=== PATIENT | female | born 1995 | race Caucasian/White ===

== ENCOUNTER 2018-01-29 12:58 | Emergency (ER) | payer OTHER ==
[2018-01-29] MEDS ORDERED: predniSONE 50 MG TAB PO STA (13:15)
--- NOTE | 2018-01-29 13:17 | ED ---
General Adult HPI - General Chief complaint: Allergic Reaction Stated complaint: Allergic Reaction Time Seen by Provider: 01/29/18 13:12 Source: EMS, RN notes reviewed Mode of arrival: EMS Limitations: no limitations - History of Present Illness Initial comments: Patient is a pleasant 42-year-old female presenting to the emergency department with concern for ALLERGIC reaction. Patient does have a known ALLERGY to tree nuts. Patient did drink some coffee attempt for this with Lazara not and it. Patient felt some mild difficulty in breathing and swelling of her throat. Patient did take some Benadryl and believes her symptoms are essentially resolved at this point. Patient states there was a little bit of a rash on her hands and upper arms however that has essentially resolved as well. - Related Data Home Medications Medication Instructions Recorded Confirmed ALPRAZolam [Xanax] 0.125 mg PO DAILY PRN 01/29/18 01/29/18 Acetaminophen [Tylenol] 500 mg PO Q4-6H PRN 01/29/18 01/29/18 Albuterol Inhaler [Ventolin Hfa 1 - 2 puff INHALATION RT-Q6H PRN 01/29/18 Inhaler] Albuterol Nebulized [Ventolin 2.5 mg INHALATION RT-Q6H PRN 01/29/18 01/29/18 Nebulized] Budesonide/Formoterol Fumarate 2 puff INHALATION RT-BID 01/29/18 01/29/18 [Symbicort 160-4.5 Mcg Inhaler] EPINEPHrine (Auto Inject) [Epipen] 0.3 mg IM ONCE PRN 01/29/18 01/29/18 Famotidine [Pepcid] 40 mg PO BID 01/29/18 01/29/18 Fexofenadine HCl [Dariela Allergy] 60 mg PO BID 01/29/18 01/29/18 Levothyroxine Sodium [Synthroid] 75 mcg PO DAILY 01/29/18 01/29/18 Liraglutide [Victoza 2-Amol] 1.6 mg SQ TU 01/29/18 01/29/18 Montelukast Sodium [Singulair] 10 mg PO HS 01/29/18 01/29/18 amLODIPine BESYLATE/BENAZEPRIL 1 cap PO DAILY 01/29/18 01/29/18 [Lotrel 5-40 mg Capsule] Previous Rx's Medication Instructions Recorded predniSONE 20 mg PO DAILY #5 tab 01/29/18 Allergies Allergy/AdvReac Type Severity Reaction Status Date / Time corn Allergy Unknown Verified 01/29/18 13:27 house dust mite Allergy Unknown Verified 01/29/18 13:27 mold Allergy Unknown Verified 01/29/18 13:27 peanut Allergy Unknown Verified 01/29/18 13:27 peas Allergy Unknown Verified 01/29/18 13:27 Penicillins Allergy Unknown Verified 01/29/18 13:15 shellfish derived [Shellfish] Allergy Unknown Verified 01/29/18 13:27 soy Allergy Unknown Verified 01/29/18 13:27 tree nut Allergy Unknown Verified 01/29/18 13:27 watermelon Allergy Unknown Verified 01/29/18 13:27 Sulfa (Sulfonamide AdvReac Unknown Verified 01/29/18 13:15 Antibiotics) [place] Allergy Unknown Uncoded 01/29/18 13:27 Review of Systems ROS Statement: Those systems with pertinent positive or pertinent negative responses have been documented in the HPI. ROS Other: All systems not noted in ROS Statement are negative. Constitutional: Denies: fever Eyes: Denies: eye pain ENT: Denies: ear pain Respiratory: Reports: dyspnea (Resolved). Denies: cough Cardiovascular: Denies: chest pain Endocrine: Reports: fatigue Gastrointestinal: Denies: abdominal pain Genitourinary: Denies: dysuria Musculoskeletal: Denies: back pain Skin: Reports: as per HPI Neurological: Denies: weakness Past Medical History Past Medical History: Asthma History of Any Multi-Drug Resistant Organisms: None Reported Past Surgical History: Orthopedic Surgery Past Psychological History: No Psychological Hx Reported Smoking Status: Never smoker Past Alcohol Use History: None Reported Past Drug Use History: Marijuana General Exam Limitations: no limitations General appearance: alert, in no apparent distress Head exam: Present: atraumatic Eye exam: Present: normal appearance, PERRL ENT exam: Present: normal oropharynx Neck exam: Present: normal inspection Respiratory exam: Present: normal lung sounds bilaterally. Absent: respiratory distress, wheezes Cardiovascular Exam: Present: regular rate, normal rhythm GI/Abdominal exam: Present: soft. Absent: tenderness Extremities exam: Present: normal inspection Neurological exam: Present: alert Psychiatric exam: Present: normal affect, normal mood Skin exam: Present: normal color Course Vital Signs 01/29/18 01/29/18 13:06 13:22 Temperature 97.3 F L Pulse Rate 94 Respiratory 18 18 Rate Blood Pressure 166/72 O2 Sat by Pulse 97 Oximetry Medical Decision Making - Medical Decision Making Patient reevaluated and symptom-free. Disposition Clinical Impression: Allergic reaction Disposition: HOME SELF-CARE Condition: Stable Instructions: Allergies (ED) Additional Instructions: Continue [id number]-[id number]-antovat antihistamine, Benadryl for the next 5 days. Return for swelling of the throat or tongue or face, difficulty breathing, worsening symptoms or any other concerns. Prescriptions: predniSONE 20 mg PO DAILY #5 tab Is patient prescribed a controlled substance at d/c from ED?: No Referrals: Aleksey Brito DO [Primary Care Provider] - 1-2 days Time of Disposition: 14:13
[2018-01-29 14:23] VITALS: BP 145/51; PULSE 80; RESP 20; TEMP 98.3
== END 2018-01-29 14:20 | disposition home or self-care (01) ==
LOC: EC 12:58
DX: T78.1XXA Other adverse food reactions, not elsewhere classified, initial encounter (principal); J45.909 Unspecified asthma, uncomplicated; Z79.51 Long term (current) use of inhaled steroids; Z79.899 Other long term (current) drug therapy; Z88.0 Allergy status to penicillin; Z88.2 Allergy status to sulfonamides; Z91.010 Allergy to peanuts; Z91.013 Allergy to seafood; Z91.018 Allergy to other foods; Z91.048 Other nonmedicinal substance allergy status
CPT/HCPCS: 99285; J7512